=== PATIENT | female | born 1990 | race Caucasian/White ===

== ENCOUNTER 2018-06-10 14:41 | Emergency (ER) ==
[2018-06-10 14:48] VITALS: BP 109/75; TEMP 97.5; BMI 25.4
--- NOTE | 2018-06-10 14:57 | ED.PDOC ---
General ED Provider: Dr. ALESSANDRA GEE Chief Complaint: Finger Pain/Injury Stated Complaint: fish hook left index Time Seen by Physician: 15:00 Mode of Arrival: Walk-In Information Source: Patient Exam Limitations: No limitations Primary Care Provider: MELLISA TAN Nursing and Triage Documentation Reviewed and Agree: Yes Does patient meet sepsis criteria?: No System Inflammatory Response Syndrome: Not Applicable Sepsis Protocol: For patient's 13 years and over: Temp is 96.8 and below OR 101 and greater Pulse >90 BPM Resp >20/minute Acutely Altered Mental Status Are patient's symptoms suggestive of a new infection, such as: -Pneumonia -Skin, Soft Tissue -Endocarditis -UTI -Bone, Joint Infection -Implantable Device -Acute Abdominal Infection -Wound Infection -Meningitis -Blood Stream Catheter Infection -Unknown Skin Complaint Exam - Skin/Soft Tissue Complaint/Exam Onset/Duration: index left finger Symptoms Are: Still present Initial Severity: Mild Current Severity: Mild Character: Denies: Redness, Swelling, Raised, Painful Aggravating: Reports: None Alleviating: Reports: None Associated Signs and Symptoms: Denies: Fever, Chills, Itching, Drainage, Bruising, Tenderness, Red streaks, Joint swelling Related Surgical History: Reports: None Recent Exposure to Others w/Similar Symptoms: No Joint Tenderness Present: No Differential Diagnoses: Other (fish hook left index ) Review of Systems - Review Of Systems Constitutional: Reports: No symptoms Eyes: Reports: No symptoms Ears, Nose, Mouth, Throat: Reports: No symptoms Respiratory: Reports: No symptoms Cardiac: Reports: No symptoms GI: Reports: No symptoms : Reports: No symptoms Musculoskeletal: Reports: Other (fish hook left index ) Skin: Reports: No symptoms Neurological: Reports: No symptoms Endocrine: Reports: No symptoms Hematologic/Lymphatic: Reports: No symptoms All Other Systems: Reviewed and Negative Past Medical History - Past Medical History Previously Healthy: Yes Endocrine: Reports: None Cardiovascular: Reports: None Respiratory: Reports: None Hematological: Reports: None Gastrointestinal: Reports: None Genitourinary: Reports: None Neuro/Psych: Reports: None Musculoskeletal: Reports: None Cancer: Reports: None Last Menstrual Period: 05/2018 - Surgical History General Surgical History: Reports: None - Family History Family History: Reports: None - Social History Smoking Status: Former smoker Hx Substance Use: No Alcohol Screening: Occasionally - Immunizations Tetanus Shot up to Date: No Physical Exam - Physical Exam Appearance: Well-appearing, No pain distress, Well-nourished Eyes: GARETH, EOMI, Conjunctiva clear ENT: Ears normal, Nose normal, Oropharynx normal Respiratory: Airway patent, Breath sounds clear, Breath sounds equal, Respirations nonlabored Cardiovascular: RRR, Pulses normal, No rub, No murmur GI/: Soft, Nontender, No masses, Bowel sounds normal, No Organomegaly Musculoskeletal: Normal strength (fish hook left finger ) Skin: Warm, Dry, Normal color Neurological: Sensation intact, Motor intact, Reflexes intact, Cranial nerves intact, Alert, Oriented Psychiatric: Affect appropriate, Mood appropriate Critical Care Note - Critical Care Note Total Time (mins): 0 Course - Course Vital Signs: Temp Pulse Resp BP Pulse Ox 06/10/18 14:42 97.5 F L 74 16 109/75 98 Departure - Departure Time of Disposition: 14:56 Disposition: HOME SELF-CARE Discharge Problem: Injury of finger Fish hook injury of finger Qualifiers: Encounter type: initial encounter Laterality: left Qualified Code(s): S69.92XA - Unspecified injury of left wrist, hand and finger(s), initial encounter Instructions: Soft Tissue Foreign Body (ED) Condition: Good Pt referred to PMD for follow-up: Yes IPMP verified?: No Additional Instructions: Please call your Family Physician as soon as possible to schedule a follow-up appointment. this was a new fish hook per your report of your finger is infected see your M.D. or return Allergies/Adverse Reactions: Allergies No Known Allergies Allergy (Unverified 06/10/18 14:47)
[2018-06-10] MEDS ORDERED: LIDOCAINE HCL 1% SDV SUBCUT STA (14:58)
== END 2018-06-10 15:10 | disposition home or self-care (01) ==
LOC: ED 14:41
DX: S61.241A Puncture wound with foreign body of left index finger without damage to nail, initial encounter (principal)
CPT/HCPCS: 99282